=== PATIENT | female | born 1995 | race Caucasian/White ===

== ENCOUNTER → 2024-04-03 08:47 | Outpatient (REF) | payer OTHER, SELFPAY | LOC: WDC 08:47 | PROVIDERS: ATTENDING PHYSICIAN Nurse Practitioner Adult Health; FAMILY PHYSICIAN Physician Assistant | DX: N64.4 Mastodynia (principal) | CPT/HCPCS: 76642 ==

== ENCOUNTER → 2024-06-25 16:38 | Outpatient (REF) | payer OTHER, SELFPAY | LOC: RAD 16:38 | PROVIDERS: ATTENDING PHYSICIAN Nurse Practitioner Adult Health; FAMILY PHYSICIAN Physician Assistant | DX: N94.6 Dysmenorrhea, unspecified (principal) | CPT/HCPCS: 76830; 76856 ==

== ENCOUNTER 2024-11-17 13:00 | Emergency (ER) | payer OTHER, SELFPAY ==
[2024-11-17] VITALS (7 sets, daily range): BP systolic 116–127; BP diastolic 63–87; BMI 28.5
--- NOTE | 2024-11-17 13:19 | ED.GENMED ---
History of Present Illness
<GIANCARLO Bahena - Last Filed: 11/18/24 09:20>
General
Chief Complaint: Chest Pain
Source: patient
Exam Limitations: none
Time Seen by Provider: 11/17/24 13:16
Nursing documentation reviewed up to this point in time: agreed with
History of Present Illness
History of Present Illness:
Patient is a 28-year-old female who presents to the ER for evaluation. Patient reports around 1145 this morning she was at work and started with upper abdominal chest pain. She does feel it in her back. She has a history of pancreatitis in 2019
and 2022 reports this feels similar. She has nauseous but has not vomited. She denies any shortness of breath. She was hospitalized previously at [facility] for this.
She does not smoke. No alcohol use. She is not on oral contraceptives.
Past History
<GIANCARLO Bahena - Last Filed: 11/18/24 09:20>
Past History
ED Past Medical History: Psychiatric (Bipolar disorder), Other (Migraine headache) and Other (Pancreatitis in 2017)
ED Past Surgical History: None
Patient has exhibited threatening behavior?: No
Social History
Tobacco: Non-smoker
Alcohol: None (2 drinks/month)
Drug: None
Personal: Single
Living: with family
Employment: Employed
Family History
Family History: Other (No history of subarachnoid hemorrhage or cerebral aneurysm)
Phy Exam
<GIANCARLO Bahena - Last Filed: 11/18/24 09:20>
General Physical Exam
General Presentation: no apparent distress
General age: appears stated age
General Skin: warm and dry
General Habitus: normal
General Mental: alert
General Hydration: appears well hydrated
Cardiovascular Exam
Cardiovascular Exam: regular rate/rhythm, no murmur and normal peripheral pulses
Gastrointestinal Exam
Gastrointestinal Exam: soft and other (upper abdominal tenderness)
Neurological Exam
Neurological Exam: alert and oriented x3
Musculoskeletal Exam
Musculoskeletal Exam: full ROM
Skin Exam
Skin Exam: normal color and warm/dry
Psychiatric Exam
Psychiatric Exam: normal mood/affect
Scores
<GIANCARLO Bahena - Last Filed: 11/18/24 09:20>
Heart Score for Chest Pain Patients
Heart Score for Chest Pain Patients: 0
Heart Score Risk: 2.5% MACE over next 6 weeks
<Lg Sargent PA-C - Last Filed: 11/17/24 18:09>
Heart Score for Chest Pain Patients
STEMI patient?: No
History: Slightly or Non-Suspicious
ECG: Normal
Age: </= 45 years
Risk Factors: No Risk Factors
Troponin: </= Normal Limit
Heart Score for Chest Pain Patients: 0
Heart Score Risk: 2.5% MACE over next 6 weeks
Course
<GIANCARLO Bahena - Last Filed: 11/18/24 09:20>
Orders/Labs/Results
Orders:
Orders
11/17/24 13:02
Electrocardiogram (*1) Urgent
Reason for Study: Chest Pain
EKG- Treatment ONCE
11/17/24 13:19
Cardiac Monitoring- Treatment ONCE
IV Insert/Care/Rem.- Treatment PRN
Test Result ONCE
11/17/24 13:26
0.9% Sodium Chloride 1000 ml [Nss] 1,000 ml IV BOLUS
Ondansetron Injectable [Zofran] 4 mg IV NOW STA
11/17/24 13:27
Ketorolac [Toradol] 15 mg IV NOW STA
11/17/24 13:37
Complete Blood Count/With Diff Urgent
Comprehensive Metabolic Panel Urgent
HCG, Serum Qualitative Screen Urgent
Lipase Urgent
11/17/24 14:48
DDimer [D-Dimer] Urgent
11/17/24 14:50
Urinalysis Reflex To Culture Urgent
Date Specimen was Collected: 11/17/24
Time Specimen was Collected: 14:48
Urine Microscopic Reflex Cult Urgent
Urine Culture Urgent
CAITLYN Source: U
Specimen Description:
Date Specimen was Collected: 11/17/24
Time Specimen was Collected: 14:48
11/17/24 15:13
HYDROmorphone [Dilaudid] 0.5 mg IV NOW STA
Ondansetron Injectable [Zofran] 4 mg IV NOW STA
11/17/24 15:31
CT Abd/pelvis W Iv Cont Urgent
Comment:
Reason For Exam: epigastric pain
11/17/24 18:02
Mag Hydrox/Al Hydrox/Simeth [Maalox] 30 ml Phenobarb/Hyoscy/Atropine/Scop [] 10 ml Viscous Lidocaine 2% [Xylocaine Viscous Cup] 10 ml PO NOW
11/17/24 18:05
Mag Hydrox/Al Hydrox/Simeth [Maalox] 30 ml .ROUTE .STK-MED ONE
Phenobarb/Hyoscy/Atropine/Scop [] 10 ml .ROUTE .STK-MED ONE
Viscous Lidocaine 2% [Xylocaine Viscous Cup] 15 ml .ROUTE .STK-MED ONE
Abnormal Lab Results
11/17/24 11/17/24
13:37 14:50
Calcium 10.5 H mg/dl
(8.4-10.2)
Total Protein 8.3 H g/dl
(6.3-8.2)
Albumin 5.3 H g/dl
(3.5-5.0)
Leukocyte Esterase Rfl 1+ A
(Negative)
Urine Bacteria (Reflex) Moderate A
(Negative)
11/17/24 13:37
11/17/24 13:37
Vital Signs
Initial and Last Documented VS:
Initial Vital Signs
Temp Pulse Resp BP Pulse Ox
98.4 F 83 18 120/75 97
11/17/24 13:06 11/17/24 13:06 11/17/24 13:06 11/17/24 13:06 11/17/24 13:06
Last Documented Vital Signs
Temp Pulse Resp BP Pulse Ox
98.2 F 68 16 125/87 98
11/17/24 18:21 11/17/24 18:21 11/17/24 18:21 11/17/24 18:21 11/17/24 18:21
<Lg Sargent PA-C - Last Filed: 11/17/24 18:09>
Orders/Labs/Results
Orders:
Orders
11/17/24 13:02
Electrocardiogram (*1) Urgent
Reason for Study: Chest Pain
EKG- Treatment ONCE
11/17/24 13:19
Cardiac Monitoring- Treatment ONCE
IV Insert/Care/Rem.- Treatment PRN
Test Result ONCE
11/17/24 13:26
0.9% Sodium Chloride 1000 ml [Nss] 1,000 ml IV BOLUS
Ondansetron Injectable [Zofran] 4 mg IV NOW STA
11/17/24 13:27
Ketorolac [Toradol] 15 mg IV NOW STA
11/17/24 13:37
Complete Blood Count/With Diff Urgent
Comprehensive Metabolic Panel Urgent
HCG, Serum Qualitative Screen Urgent
Lipase Urgent
11/17/24 14:48
DDimer [D-Dimer] Urgent
11/17/24 14:50
Urinalysis Reflex To Culture Urgent
Date Specimen was Collected: 11/17/24
Time Specimen was Collected: 14:48
Urine Microscopic Reflex Cult Urgent
Urine Culture Urgent
CAITLYN Source: U
Specimen Description:
Date Specimen was Collected: 11/17/24
Time Specimen was Collected: 14:48
11/17/24 15:13
HYDROmorphone [Dilaudid] 0.5 mg IV NOW STA
Ondansetron Injectable [Zofran] 4 mg IV NOW STA
11/17/24 15:31
CT Abd/pelvis W Iv Cont Urgent
Comment:
Reason For Exam: epigastric pain
11/17/24 18:02
Mag Hydrox/Al Hydrox/Simeth [Maalox] 30 ml Phenobarb/Hyoscy/Atropine/Scop [] 10 ml Viscous Lidocaine 2% [Xylocaine Viscous Cup] 10 ml PO NOW
11/17/24 18:05
Mag Hydrox/Al Hydrox/Simeth [Maalox] 30 ml .ROUTE .STK-MED ONE
Phenobarb/Hyoscy/Atropine/Scop [] 10 ml .ROUTE .STK-MED ONE
Viscous Lidocaine 2% [Xylocaine Viscous Cup] 15 ml .ROUTE .STK-MED ONE
Abnormal Lab Results
11/17/24 11/17/24
13:37 14:50
Calcium 10.5 H mg/dl
(8.4-10.2)
Total Protein 8.3 H g/dl
(6.3-8.2)
Albumin 5.3 H g/dl
(3.5-5.0)
Leukocyte Esterase Rfl 1+ A
(Negative)
Urine Bacteria (Reflex) Moderate A
(Negative)
11/17/24 13:37
11/17/24 13:37
Vital Signs
Initial and Last Documented VS:
Initial Vital Signs
Temp Pulse Resp BP Pulse Ox
98.4 F 83 18 120/75 97
11/17/24 13:06 11/17/24 13:06 11/17/24 13:06 11/17/24 13:06 11/17/24 13:06
Last Documented Vital Signs
Temp Pulse Resp BP Pulse Ox
98.2 F 68 16 125/87 98
11/17/24 18:21 11/17/24 18:21 11/17/24 18:21 11/17/24 18:21 11/17/24 18:21
<GIANCARLO Bahena - Last Filed: 11/18/24 09:20>
MDM/Problems Addressed
MDM/Problems Addressed:
As documented patient is a 28-year-old female with history of pancreatitis presents today with epigastric upper abdominal pain that radiates to her back. She has been nauseous with this. This does feel similar to when she had pancreatitis in the
past. She is not on oral contraceptives she does not smoke she is no PAD risk factors. No prior history of clotting disorder or PE. She is awake alert no acute distress abdomen is soft however tender to the upper abdominal region.
She denies any fever chills and is afebrile her white count unremarkable, normal labs normal labs normal lipase. Though she does report pain is consistent with her previous pancreatitis she does point to the chest area radiate to the back will
check a D-dimer and if negative plan to do a CAT scan of the abdomen. Care of patient this time transferred to [facility]
<GIANCARLO Bahena - Last Filed: 11/18/24 09:20>
*Radiology
Radiology exam reviewed: radiology read reviewed
*Pulse Oximetry
SaO2: 97
Oxygen Mode of Delivery: Room air
<Lg Sargent PA-C - Last Filed: 11/17/24 18:09>
*Pulse Oximetry
Patient hypoxic: no
*Critical Care Note
Total Time (30-74mins, 75-104mins- exclusive of procedures): Not Applicable
<Lg Sargent PA-C - Last Filed: 11/17/24 18:09>
Update Note
Update Note:
Assumed care of patient pending imaging studies. D-dimer is negative. Do not suspect PE. CT scan was ordered of the abdomen which is negative for acute finding. The gallbladder was visualized and is without signs of cholecystitis. Patient's
pain slightly improved here lipase is normal pancreas appears normal on CT scan. Do not suspect pancreatitis. Consider possible gastritis or reflux. GI cocktail ordered stable for discharge with PPI
ED Attending Note
<GIANCARLO Bahena - Last Filed: 11/18/24 09:20>
-
Portions of this chart may have been created with voice recognition software.� Occasional wrong word or��sound alike� substitutions may have occurred due to the inherent limitations of voice recognition software.
Discharge Plan
Departure
Patient Disposition: Home (Routine Discharge)
Date of Disposition: 11/17/24
Time of Disposition: 18:05
Patient with high blood pressure during this ER visit?: No
Discharge Problem:
Abdominal pain
Instructions: Abdominal pain in adults (DC)
Prescriptions:
New
omeprazole 40 mg capsule,delayed release(DR/EC)
40 mg PO DAILY Qty: 14 0RF
No Action
duloxetine 60 mg Capsule,Delayed Release(Dr/Ec)
60 mg PO DAILY
cholecalciferol (vitamin D3) [Vitamin D3] 125 mcg (5,000 unit) Tablet
250 mcg PO DAILY
melatonin 10 mg Tablet
10 mg PO HS PRN (Reason: insomnia)
Ajovy Syringe 225 mg/1.5 mL Syringe
675 mg SC [id number]
tramadol 50 mg tablet
50 mg PO Q8H PRN (Reason: pain) Qty: 6 0RF
amoxicillin-pot clavulanate 875-125 mg tablet
1 tab PO BID Qty: 20 0RF
ondansetron 4 mg tablet,disintegrating
4 mg PO Q8H PRN (Reason: nausea and vomiting) 4 Days Qty: 10 0RF
tramadol 50 mg tablet
50 mg PO TID PRN (Reason: Pain) Qty: 12 0RF
Referrals:
Maxine Mims PA-C [Family Provider, Family Practice]
Luis Fernando Prescott MD [Active, Gastroenterology]
Activity Restrictions/Additional Instructions:
Eat a bland diet. Avoid caffeine and alcohol. Use antacids as directed. Follow-up with GI or family doctor for persistent symptoms. Return if worse otherwise
Interventions
Interventions:
*Risk Screen - Suicide Last Done: 11/17/24 13:06
*General Assessment Last Done: 11/17/24 13:35
*Neglect/Abuse Screening Last Done: 11/17/24 13:06
*ED- Fall Risk Assessment Last Done: 11/17/24 13:35
*ED COVID-19 Vaccine History Last Done: 11/17/24 13:35
*Nursing Disposition Last Done: 11/17/24 18:21
ED- Cardiac Assessment Last Done: 11/17/24 15:31
Discharge Date and Time
Discharge Date/Time: 11/17/24 18:25
Print Language: [place]CI[place]
[2024-11-17] MEDS: NSS 1000 IV (13:46)
[2024-11-17] MEDS: ZOFRAN 4 MG IV ×2 (13:48→15:20)
[2024-11-17] MEDS: TORADOL 15 MG IV (13:49)
[2024-11-17 13:54] LABS: Hematocrit 42.5 % (37.0-47.0); Hemoglobin 14.6 g/dL (12.0-16.0); Mean Corp Hgb Conc. 34.4 g/dL (33.0-37.0); Mean Corpuscular Volume 82.8 fL (81.0-99.0); Nucleated Red Blood Cells % 0 %; Platelet Count 250 10^3/uL (130-400); Red Cell Dist. Width 12.1 % (11.5-14.5)
[2024-11-17 14:11] LABS: HCG, Serum Qualitative Screen Negative
[2024-11-17 14:20] LABS: ALT (SGPT) 20 U/L (0-35); AST (SGOT) 25 U/L (14-36); Albumin 5.3 g/dl (3.5-5.0); Alkaline Phosphatase 69 U/L (38-126); Blood Urea Nitrogen 13 mg/dl (7-17); Calcium 10.5 mg/dl (8.4-10.2); Carbon Dioxide 28 mmol/L (22-30); Chloride 105 mmol/L (98-107); Estimated Creatinine Clearance > 125 ml/min; Glucose 78 mg/dl (70-99); Lipase 119 U/L (23-300); Potassium 4.2 mmol/L (3.5-5.1); Sodium 139 mmol/L (135-145); Total Protein 8.3 g/dl (6.3-8.2); eGFR > 60.00
[2024-11-17 15:01] LABS: Urine Character Clear (Clear)
[2024-11-17] MEDS: DILAUDID 0.5 MG IV (15:19)
[2024-11-17 15:22] LABS: Urine Squamous Cell >30 /LPF (Few)
[2024-11-17 15:23] LABS: Urine Red Blood Cell 0-2 /HPF (0-2)
[2024-11-17 15:28] LABS: D-Dimer < 0.27 ug/mlFEU (0.00-0.50)
[2024-11-17] MEDS: MAALOX 50 PO (18:10)
== END 2024-11-17 18:25 | disposition home or self-care (01) ==
LOC: EMR 13:00
PROVIDERS: Nurse Practitioner; EMERGENCY PHYSICIAN Emergency Medicine; FAMILY PHYSICIAN Physician Assistant
DX: R10.10 Upper abdominal pain, unspecified (principal); R07.9 Chest pain, unspecified; Z87.19 Personal history of other diseases of the digestive system
CPT/HCPCS: 96374; 96375; 96376; 96361; 99284; 74177; 80053; 81003; 81015; 83690; 84703; 85025; 85379; 87086; 93005; Q9967

== ENCOUNTER 2024-12-10 11:08 | Emergency (ER) | payer OTHER, SELFPAY ==
[2024-12-10 11:10] VITALS: BP 142/101
--- NOTE | 2024-12-10 11:49 | ED.GENMED ---
History of Present Illness
General
Chief Complaint: Medication Reaction
Time Seen by Provider: 12/10/24 11:32
History of Present Illness
History of Present Illness:
28 yo female presents for evaluation of hoarseness of voice, odynophagia, BL ear pain, dry cough, and worsening rash. She was started on prednisone by her PCP 5d ago for poison oak dermatitis, states that on day four of the steroids the above
symptoms developed. Rash to torso is profoundly itchy, and the facial rash has worsened. No objective fever but tactile fever reported. Awoke last night w/ dyspnea. She also reports have chest tightness and 'heartburn' symptoms when lying on her
side.
Past History
Past History
ED Past Medical History: Psychiatric (Bipolar disorder), Other (Migraine headache) and Other (Pancreatitis in 2017)
ED Past Surgical History: None
Patient has exhibited threatening behavior?: No
Social History
Tobacco: Non-smoker
Alcohol: None (2 drinks/month)
Drug: None
Personal: Single
Living: with family
Employment: Employed
Family History
Family History: Other (No history of subarachnoid hemorrhage or cerebral aneurysm)
Review of Systems
Review of Systems
Allergies reviewed?: Yes
All Other Systems: ROS reviewed and negative except as documented in HPI and ROS
Phy Exam
Physical Exam
Physical Exam:
GEN: Well appearing, NAD, WDWN
HEENT: Oral mucosa moist, no scleral icterus. Mild oropharyngeal cobblestoning and erythema, no purulent discharge. No cervical adenopathy. No stridor
Cardiac: Regular rate and rhythm, no murmur
Lung: No respiratory distress, no tachypnea, lungs CTAB
MSK: No gross deformity or injuries
Skin: Good color, no pallor or jaundice, Patchy erythematous exanthem to R abdomen, blanches
Neuro: AO x3, moves all extremities freely
Psych: Calm, cooperative
Course
Vital Signs
Initial and Last Documented VS:
Initial Vital Signs
Temp Pulse Resp BP Pulse Ox
98.3 F 94 16 142/101 99
12/10/24 11:10 12/10/24 11:10 12/10/24 11:10 12/10/24 11:10 12/10/24 11:10
Last Documented Vital Signs
Temp Pulse Resp BP Pulse Ox
98.3 F 94 16 142/101 99
12/10/24 11:10 12/10/24 11:10 12/10/24 11:10 12/10/24 11:10 12/10/24 11:54
MDM/Problems Addressed
MDM/Problems Addressed:
Clinically I suspect her symptoms may be more viral mediated superimposed on her contact dermatitis, however cannot discount the possibility of a steroid hypersensitivity syndrome. We did discuss anti histamine usage however she reports
diphenhydramine gives her severe palpitations. She has trialed loratadine w/o relief. No signs of AOM, ABRS, PNA, strep pharyngitis. Rash is non petechial. Do not feel additional steroids will provide any relief. Pt and mother educated that time
will likely provide the greatest symptom benefit more than any one medication alone. No e/o angioedema/anaphylaxis.
*Pulse Oximetry
SaO2: 99
Oxygen Mode of Delivery: Room air
Patient hypoxic: no
*Critical Care Note
Total Time (30-74mins, 75-104mins- exclusive of procedures): Not Applicable
ED Attending Note
-
Portions of this chart may have been created with voice recognition software.� Occasional wrong word or��sound alike� substitutions may have occurred due to the inherent limitations of voice recognition software.
Discharge Plan
Departure
Patient Disposition: Home (Routine Discharge)
Date of Disposition: 12/10/24
Time of Disposition: 11:49
Patient with high blood pressure during this ER visit?: No
Discharge Problem:
Laryngitis, Rash
Prescriptions:
No Action
duloxetine 60 mg Capsule,Delayed Release(Dr/Ec)
60 mg PO DAILY
cholecalciferol (vitamin D3) [Vitamin D3] 125 mcg (5,000 unit) Tablet
250 mcg PO DAILY
melatonin 10 mg Tablet
10 mg PO HS PRN (Reason: insomnia)
Ajovy Syringe 225 mg/1.5 mL Syringe
675 mg SC [id number]
tramadol 50 mg tablet
50 mg PO Q8H PRN (Reason: pain) Qty: 6 0RF
amoxicillin-pot clavulanate 875-125 mg tablet
1 tab PO BID Qty: 20 0RF
ondansetron 4 mg tablet,disintegrating
4 mg PO Q8H PRN (Reason: nausea and vomiting) 4 Days Qty: 10 0RF
tramadol 50 mg tablet
50 mg PO TID PRN (Reason: Pain) Qty: 12 0RF
omeprazole 40 mg capsule,delayed release(DR/EC)
40 mg PO DAILY Qty: 14 0RF
Activity Restrictions/Additional Instructions:
This may be a hypersensitivity reaction to prednisone. Please take loratadine 10mg every 8 hours (alternatively you can take 25-50mg Benadryl if side effects are not too severe) for 3-5 days. Once the prednisone is no longer in your system, you will
likely see symptomatic improvement
This may also be a concurrent viral respiratory illness that you developed while taking steroids. This will also improve over the next several days
If you develop difficulty breathing, stridor (wheezing during breathing in) or trouble swallowing (not simply pain), do not hesitate to return to the Emergency Department
Interventions
Interventions:
*Risk Screen - Suicide Last Done: 12/10/24 11:10
*Neglect/Abuse Screening Last Done: 12/10/24 11:10
*Nursing Disposition Last Done: 12/10/24 12:07
ED-Skin Assessment Last Done: 12/10/24 12:05
ED-EENT Assessment Last Done: 12/10/24 12:05
Discharge Date and Time
Discharge Date/Time: 12/10/24 12:07
Print Language: VENEZUELAN
== END 2024-12-10 12:07 | disposition home or self-care (01) ==
LOC: EMR 11:08
PROVIDERS: EMERGENCY PHYSICIAN Emergency Medicine; FAMILY PHYSICIAN Physician Assistant
DX: J04.0 Acute laryngitis (principal); L23.7 Allergic contact dermatitis due to plants, except food; F31.9 Bipolar disorder, unspecified
CPT/HCPCS: 99282